=== PATIENT | female | born 1995 | race Caucasian/White ===

== ENCOUNTER 2018-03-31 19:58 | Emergency (ER) | payer OTHER ==
[~2018-03-31] VITALS: Ht 170.2 cm; Wt 77.1 kg
[2018-03-31] MEDS ORDERED: NORFLEX100 MG PO (21:42)
[2018-03-31] MEDS ORDERED: ULTRAM 50MG TAB50 MG PO (21:42)
[2018-03-31 22:30] VITALS: BP 123/74
== END 2018-03-31 22:32 | disposition home or self-care (01) ==
LOC: ER 19:58
DX: S16.1XXA Strain of muscle, fascia and tendon at neck level, initial encounter (principal); S30.0XXA Contusion of lower back and pelvis, initial encounter; S20.222A Contusion of left back wall of thorax, initial encounter; F07.81 Postconcussional syndrome; F17.210 Nicotine dependence, cigarettes, uncomplicated; W11.XXXA Fall on and from ladder, initial encounter; Y92.89 Other specified places as the place of occurrence of the external cause; Y99.0 Civilian activity done for income or pay; Y99.8 Other external cause status